=== PATIENT | female | born 1985 | race African-American/Black ===

== ENCOUNTER 2020-04-06 15:50 | Outpatient (CLI) | payer BC, SELFPAY ==
[2020-04-06 16:57] LABS: Beta HCG Quantitative < 2.39 mIU/ML
== END 2020-04-06 15:51 | disposition home or self-care (01) ==
PROVIDERS: PCP Internal Medicine; Visit Provider Obstetrics & Gynecology
DX: O03.9 Complete or unspecified spontaneous abortion without complication (principal); Z3A.00 Weeks of gestation of pregnancy not specified
CPT/HCPCS: 36415; 84702

== ENCOUNTER 2020-12-14 15:35 | Outpatient (CLI) | payer BC, SELFPAY ==
--- NOTE | ~2020-12-14 | US_ITS ---
EXAMINATION: US OB <=14 wk fetus w TV EXAM DATE: 12/14/2020 16:03 INDICATION: Dating and viability. 1st trimester. TECHNIQUE: Pelvic obstetrical transabdominal sonogram was performed by a technologist. There are mu ltiple grayscale and Doppler images available for interpretation. There are no earlier studies of th is gestation for comparison. FINDINGS: Uterus measures 8.8 x 5.5 x 5.9 cm. There is intrauterine gestation sac. pole with heart rate confirmed at 138 beats per minute. The 10 mm crown-rump length corresponds to estimated g estational age by ultrasound of 7 weeks 1 day, estimated date of confinement 08/01/2021. Yolk sac is identified. There is no sonographic evidence of subchorionic hemorrhage. The ovaries are unremar kable. Uncertain which one has the corpus luteal cyst. IMPRESSION: Early live intrauterine gestation, age by ultrasound 7 weeks 1 day. Reviewed, dictated and finalized at location A. IMPRESSION: Early live intrauterine gestation, age by ultrasound 7 weeks 1 day .
[2020-12-18 08:52] LABS: Progesterone 24.5 ng/mL (***)
== END 2020-12-14 15:36 | disposition home or self-care (01) ==
LOC: ANHIMG 15:35
PROVIDERS: PCP Internal Medicine; Visit Provider Obstetrics & Gynecology
DX: Z34.90 Encounter for supervision of normal pregnancy, unspecified, unspecified trimester (principal); N91.2 Amenorrhea, unspecified; Z3A.00 Weeks of gestation of pregnancy not specified
CPT/HCPCS: 36415; 76801; 76817; 84144; 84702

== ENCOUNTER 2020-12-16 15:07 | Outpatient (CLI) | payer BC, SELFPAY | END 2020-12-16 15:08 | disposition home or self-care (01) | LOC: ANHLAB 15:08 | PROVIDERS: PCP Internal Medicine; Visit Provider Obstetrics & Gynecology | DX: N91.2 Amenorrhea, unspecified (principal) | CPT/HCPCS: 36415; 84702 ==

== ENCOUNTER 2021-05-17 13:59 | Outpatient (CLI) | payer BC, SELFPAY ==
[2021-05-17 14:39] LABS: Glucose 1 Hour PP 50gm Dose 93 mg/dL
[2021-05-17 14:45] LABS: Basophils Percent Auto 0.1 % (0.2-1.2); Eosinophils Percent Auto 0.1 % (0-4.4); Hematocrit 35.6 % (37.0-47.0); Hemoglobin 12.4 g/dL (12.0-15.0); Immature Granulocyte Absolute 0.02 K/mm3 (0.00-0.031); Immature Granulocyte Percent A 0.3 % (0-0.5); Lymphocytes Absolute Auto 1.47 K/mm3 (0.9-3.2); Lymphocytes Percent Auto 18.9 % (18.3-44.2); Mean Corpuscular HGB Conc 34.8 g/dl (32-36); Mean Corpuscular Hemoglobin 30.8 pg (26-34); Mean Corpuscular Volume 88.3 fl (80-100); Mean Platelet Volume 10.2 fl (7.4-10.4); Monocytes Absolute Auto 0.9 K/mm3 (0.1-0.6); Monocytes Percent Auto 11.4 % (2.6-8.5); Neutrophils Absolute Auto 5.4 K/mm3 (1.3-6.7); Neutrophils Percent Auto 69.2 % (45.5-73.1); Platelet Count Result 252 k/mm3 (150-375); Red Blood Count 4.03 M/mm3 (4.2-5.4); Red Cell Distribution Width 13.2 % (11.5-14.5); White Blood Count 7.8 K/mm3 (4.5-10.0)
== END 2021-05-17 14:00 | disposition home or self-care (01) ==
PROVIDERS: PCP Internal Medicine; Visit Provider Obstetrics & Gynecology
DX: Z34.90 Encounter for supervision of normal pregnancy, unspecified, unspecified trimester (principal); Z3A.00 Weeks of gestation of pregnancy not specified
CPT/HCPCS: 36415; 82947; 85025; 86850

== ENCOUNTER 2021-06-03 15:19 | Outpatient (CLI) | payer BC, SELFPAY ==
[2021-06-03 16:18] LABS: Basophils Percent Auto 0.1 % (0.2-1.2); Eosinophils Percent Auto 0.1 % (0-4.4); Hemoglobin 13.2 g/dL (12.0-15.0); Immature Granulocyte Absolute 0.02 K/mm3 (0.00-0.031); Immature Granulocyte Percent A 0.3 % (0-0.5); Lymphocytes Absolute Auto 1.32 K/mm3 (0.9-3.2); Lymphocytes Percent Auto 17.1 % (18.3-44.2); Mean Corpuscular HGB Conc 33.8 g/dl (32-36); Mean Corpuscular Volume 88.6 fl (80-100); Mean Platelet Volume 10.6 fl (7.4-10.4); Monocytes Absolute Auto 0.8 K/mm3 (0.1-0.6); Neutrophils Absolute Auto 5.6 K/mm3 (1.3-6.7); Neutrophils Percent Auto 72.4 % (45.5-73.1); Platelet Count Result 248 k/mm3 (150-375); Red Cell Distribution Width 13.2 % (11.5-14.5); White Blood Count 7.7 K/mm3 (4.5-10.0)
[2021-06-03 17:10] LABS: HIV 1/2 Ab P24 Ag Result Negative (Negative)
[2021-06-04 11:52] LABS: Rapid Plasma Reagin Reactive (NonReactive)
[2021-06-07 17:47] LABS: Treponema pallidum Ab FTA ABS Nonreactive (Nonreactive)
== END 2021-06-03 15:20 | disposition home or self-care (01) ==
LOC: ANHLAB 15:22
PROVIDERS: PCP Internal Medicine; Visit Provider Obstetrics & Gynecology
DX: Z34.90 Encounter for supervision of normal pregnancy, unspecified, unspecified trimester (principal); Z3A.00 Weeks of gestation of pregnancy not specified
CPT/HCPCS: 36415; 85025; 86592; 86703; 86780; G0432

== ENCOUNTER 2021-07-24 09:25 | Outpatient (RCR) | payer BC, SELFPAY ==
[2021-07-22 15:48] VITALS: BP 109/65; PULSE 71
--- NOTE | 2021-07-22 16:25 | PC.NURSE ---
FATMATA=6.7
--- NOTE | ~2021-07-24 | US_ITS ---
EXAMINATION: US OB limited EXAM DATE: 07/22/2021 16:15 INDICATION: Decreased baseline. FATMATA. Oligohydramnios. 3rd trimester. TECHNIQUE: Pelvic obstetrical transabdominal sonogram was performed by a technologist. There are mu ltiple grayscale and Doppler images available for interpretation. Comparison is made to prior examina tion from 12/14/2020. FINDINGS: There is a single fetus identified in vertex presentation with a heart rate of 139 beats pe r minute. The placenta is located in the anterior position. There is no sonographic evidence of retr oplacental hemorrhage identified. AMNIOTIC FLUID INDEX Quadrant 1: 0 cm Quadrant 2: 0 cm Quadrant 3: 2.8 cm Quadrant 4: 3.9 cm Amniotic fluid index: 6.7 cm. (The 5th -- 95th percentile range is 7.3-23.9). IMPRESSION: 1. Single fetus in vertex presentation with heart rate 139 beats per minute. 2. FATMATA 6.7 cm, OLIGOHYDRAMNIOS. Reviewed, dictated and finalized at location A. SIVE PHYSICIAN
[2021-07-24 10:54] VITALS: BP 108/67; PULSE 73
== END 2021-08-19 13:22 | disposition home or self-care (01) ==
LOC: ANHOBOP 09:25
PROVIDERS: PCP Internal Medicine; Visit Provider Obstetrics & Gynecology
DX: O36.8330 Maternal care for abnormalities of the fetal heart rate or rhythm, third trimester, not applicable or unspecified (principal); O41.03X0 Oligohydramnios, third trimester, not applicable or unspecified; Z3A.38 38 weeks gestation of pregnancy
CPT/HCPCS: 59025; 76815

== ENCOUNTER 2021-07-24 10:40 | Inpatient (IN) | payer BC, SELFPAY ==
[2021-07-24] VITALS (68 sets, daily range): BP systolic 95–140; BP diastolic 51–92; PULSE 40–91; RESP 13–16; TEMP 35.9–36.9; O2SAT 89–100; BMI 31.4
[2021-07-24] MEDS: DINOPROSTONE 10 MG VAG INSERT VAGINAL (12:34)
[2021-07-24 12:43] LABS: Basophils Percent Auto 0.1 % (0.2-1.2); Eosinophils Percent Auto 0.3 % (0-4.4); Hematocrit 41.6 % (37.0-47.0); Hemoglobin 14.1 g/dL (12.0-15.0); Immature Granulocyte Absolute 0.02 K/mm3 (0.00-0.031); Immature Granulocyte Percent A 0.3 % (0-0.5); Lymphocytes Absolute Auto 1.32 K/mm3 (0.9-3.2); Lymphocytes Percent Auto 18.8 % (18.3-44.2); Mean Corpuscular HGB Conc 33.9 g/dl (32-36); Mean Corpuscular Hemoglobin 30.9 pg (26-34); Mean Platelet Volume 10.7 fl (7.4-10.4); Monocytes Absolute Auto 0.6 K/mm3 (0.1-0.6); Neutrophils Percent Auto 71.5 % (45.5-73.1); Platelet Count Result 237 k/mm3 (150-375); Red Blood Count 4.57 M/mm3 (4.2-5.4); Red Cell Distribution Width 13.7 % (11.5-14.5)
--- NOTE | 2021-07-24 12:43 | LDADM ---
This patient, Buzz Connolly, was admitted to Labor/Delivery/Recovery 109 on 07/24/21 at 10:40. Plans for labor, pain management and were discussed with patient. Patient/family oriented to hospital policies and general routines including ID bracelet, bed and alarms, visiting hours, pain management, procedures, bathroom and other care routines, personal items, smoking policy, room service/diet and guest tray routines, security routines, and visiting hours. Patient/Family are encouraged to report perceived risks to care and to ask questions if they do not understand what they are told or what they should do. See OBIX for further documentation.
[2021-07-24] MEDS: LACTATED RINGERS 1,000 ML 125 ML IV CONT (13:50)
[2021-07-24] MEDS: AMPICILLIN 2 GM/NS 100 ML 2 GM/100 ML BAG IVPB (13:50)
--- NOTE | 2021-07-24 16:29 | WPDANLDPN2 ---
Anes-Prog Note L&D Date/Time: 07/24/21 16:29 Comfortable throughout: labor and delivery Neuraxial method: epidural Epidural/Spinal procedure site: clean & non-tender Neuro status: Neuro function grossly intact. Cardiovascular status: normal Respiratory status: normal Airway patency: baseline Mental status: baseline Post-Op hydration status: normal Vital Signs: Last Vital Signs Pulse 71 07/24/21 15:01 BP 109/61 07/24/21 15:01 Pain score (VAS): 0 Post-procedural complaints: none Patient feedback: Patient satisfied with anesthetic care.
[2021-07-24] MEDS: ceFAZolin 2 GM/D5W 50 ML 2 GM/50 ML BAG IVPB (17:25)
--- NOTE | 2021-07-24 17:49 | PC.NURSE ---
1455- called in to see what SVE was,informed has not been performed due to repetitive late decelerations per Mele SANDOVAL. will review fhr strip at home and call back.
--- NOTE | 2021-07-24 17:51 | PC.NURSE ---
1636- called back, section called for [facility]'s. Anesthesia and nursery notified.
--- NOTE | 2021-07-24 18:06 | PM.IMHP ---
H&P: HPI History of Present Illness Date/Time: 07/24/21 18:06 Patient admitted for medical induction of labor due to non reassuring surveillance testing. She was scheduled for NST FATMATA today after having an FATMATA 6.7 on Jul. She was evaluated then for decrease baseline. The NST was reactive. On L and D she had non repetitive mild deceleration and she was recommended for induction due to nonreassuring surveillance at term. Her cervix was closed. She was informed of induction and risk benefits and risk of continuing . She agreed with induction. Discussed cervidil and pitocin. PNC significant for pos GBS, and AMA. She does have satisfied parity and has desire for permanent sterilization . She is aware it may need to be done after recovery. Chief Complaint: Nonreassuring tracing. Review of Systems Review of Systems: All systems reviewed & are unremarkable except as noted in HPI and below Constitutional: Constitutional: Reports no additional constitutional complaints and Denies headache(s) Eyes: Eyes: Denies spots in vision ENT: Reports system reviewed and no additional complaints, except as documented and Denies headache(s) Cardiovascular: Cardiovascular: Denies chest pain and Denies dyspnea Respiratory: Respiratory: Denies dyspnea Gastrointestinal: Gastrointestinal: Reports no additional gastrointestinal complaints Genitourinary: Genitourinary: Reports amenorrhea Musculoskeletal: Musculoskeletal: Reports no additional musculoskeletal complaints Integumentary/Breasts: Skin/Breast: Denies breast mass and Denies rash Neurologic: Denies headache(s) Psychiatric: Psychiatric: Reports no additional psychiatric complaints PMFSH Past Medical History Medical History x1 Anxiety History of syphilis Missed x1 Vaginal delivery x1 Surgical History Surgical History H/O LEEP [place] teeth extracted Family History Family History Other No pertinent family history Social History Social History Smoking status: Never smoker Alcohol intake: never Substance use: never Spiritual care concerns: No Meds Home Medications and Allergies Home Medications Medication Instructions Recorded Confirmed Type prenat.vits,nubia,dls-uqsi-mhize 1 tablet PO DAILY 01/13/21 07/22/21 History Allergies Allergy/AdvReac Type Severity Reaction Status Date / Time No Known Allergies Allergy Mild Verified 07/13/21 09:29 Vital Signs Vital Signs - 24 hr 07/24/21 11:15 07/24/21 11:31 07/24/21 11:45 Pulse Rate 72 80 91 Blood Pressure 139/92 H 119/68 118/75 07/24/21 12:00 07/24/21 12:15 07/24/21 14:29 Pulse Rate 80 77 71 Blood Pressure 114/68 115/78 116/72 07/24/21 15:01 07/24/21 16:34 Pulse Rate 71 65 Blood Pressure 109/61 140/74 Exam Const: General: no acute distress Eyes: General: appearance normal, both eyes and all related structures Resp: Effort & Inspection: normal respiratory effort Cardio: Rate: regular rate GI: Other: Gravid no fundal tenderness no right upper quadrant pain Skin: General skin exam: no rashes or lesions noted Neuro: Cognition (Neuro): normal cognition Extrem: General: normal to inspection Psych: Mental Status: mental status grossly normal H&P: Results Labs Labs: Short CBC 07/24/21 Range/Units 12:38 WBC 7.0 (4.5-10.0) K/mm3 Hgb 14.1 (12.0-15.0) g/dL Hct 41.6 (37.0-47.0) % Plt Count 237 (150-375) k/mm3 Assessment and Plan Assessment and plan (1) Non-reassuring cardiotocographic tracing: Code(s): O36.8390 - Maternal care for abnormalities of the heart rate or rhythm, unspecified trimester, not applicable or unspecified Status: A
--- NOTE | 2021-07-24 18:19 | P.PNOB_ITS ---
OB - PN: Subj Subjective Date/time seen: 07/24/21 18:19 I was called at 1556 due to patient having nonrepetitive late decelerations. Cervidil removed. The plan was for observation and once resolved will give trial of pitocin. I called at 1630 and informed pitocin not started due to late decelerations persisted, and decreased variability. I informed to prepare patient for ceserean section. Her cervix was also checked and was closed. I talked to patient when I arrived and discussed the recommendation for demi erean section due to nonreassuring tracing remote from delivery, intolerance to labor. I discussed risk of ceserean section and risk of continuing induction process. She agreed to primary ceserean section. Sterilization not offered at this time. OB - PN: Obj Data Labs CBC & Chem 7: 07/24/21 12:38 Labs: Laboratory Results - last 24 hr 07/24/21 07/24/21 12:38 12:38 WBC 7.0 RBC 4.57 Hgb 14.1 Hct 41.6 MCV 91.0 MCH 30.9 MCHC 33.9 RDW 13.7 Plt Count 237 MPV 10.7 H Immature Gran % (Auto) 0.3 Neut % (Auto) 71.5 Lymph % (Auto) 18.8 [place] % (Auto) 9.0 H Eos % (Auto) 0.3 Baso % (Auto) 0.1 L Lymph # (Auto) 1.32 [place] # (Auto) 0.6 Eos # (Auto) 0.0 Baso # (Auto) 0.0 Abs Immat Gran (auto) 0.02 Absolute Neuts (auto) 5.0 Absolute Nucleated RBC 0.0 Nucleated RBC % 0.0 Blood Type AB Positive Antibody Screen Negative OB - PN A/P Time Spent With Patient Time: Total time spent is greater than 50% in coordination of care (as documented) at patient's floor/unit and/or counseling patient:
--- NOTE | 2021-07-24 18:34 | W.PM.PROC2 ---
Procedure Note - Detailed Date of Procedure 07/24/21 Pre-op Diagnosis 1 IOL 2. intolerance to labor, remote from delivery. Post-op Diagnosis same Procedure Performed Primary low transverse ceserean section. Surgeon Brandon Duron MD Anesthesia spinal Indications Nonreassuring tracing remote from delivery. Findings male , 5lb 6oz, 9,9 normal uterus fallopian tubes and ovaries bilaterally, there was a cord around the trunk and leg manually reduced, infant was vigorously crying upon delivery. Description of Procedure After informed consent, risks and benefits of the procedure was discussed with the patient. The patient was taken to the operating room where she was placed in the dorsal lithotomy position with leftward tilt. A spinal anesthesia was performed and found to be adequate, she was then prepped and draped in the usual sterile fashion. A Pfannenstiel skin incision was made with a scalpel and carried through to the underlying layer of fascia. The fascia was then nicked in the midline, extending bilaterally. The fascia was dissected off the rectus muscles bluntly and sharply, superiorly and inferiorly. The rectus muscles were in the midline, and peritoneum was identified and entered bluntly. The pelvic organs were visualized. The bladder blade was then inserted. The vesicouterine peritoneum was identified and entered sharply with Metzenbaum scissors and extended bilaterally and then the bladder flap was created digitally. The low transverse uterine incision was then made with the scalpel and extended with bilateral index fingers in a crescent-shaped fashion. Clear amniotic fluid was noted. The head was delivered and the rest of the infant was delivered. The cord was wrapped around the abdomen once and the leg. The cord was manually reduced. The nose and mouth suctioned. The cord was clamped twice and cut. The was then handed off to the awaiting pediatric staff. Cord segment and cord blood obtained. The placenta was then delivered manually. The uterine cavity was sponge curretted. The uterus was then exteriorized. The uterine incision was then closed with 0 vicryl in a running locked fashion. A second layer of 0 vicryl was used in an imbricating fashion for hemostasis. Hemostasis noted. The uterus was then returned to the abdomen. Posterior cul de sac and bilateral gutters were cleared off all clots and debris. The uterine incision was noted to be hemostatic. Interceed placed on uterine incision and vertically on front of uterus. The muscle bellies were inspected and noted to be hemostatic. The subfascial layer was noted to be hemostatic, and the fascia was closed with 0 Vicryl in a running fashion. The subcutaneous layer was irrigated. Hemostasis obtained with cautery. The skin was closed in a subcutaneous fashion with 4.0 vicryl on a kief needle. Skin dermabond applied at incision. Dressing placed. All instruments, needle, and lap counts were correct x3. The patient was taken to the recovery room in stable condition. Estimated Blood Loss -275.0 Drains No Packing No Pathology yes Complications No immediate complications Condition stable Disposition floor
[2021-07-24] MEDS: OXYTOCIN 30 UNITS/NS 500 ML 30 UNITS/500 ML BAG 125 UNITS IV CONT (19:15)
[2021-07-24] MEDS: ONDANSETRON INJ 4 MG/2 ML VIAL IV PUSH (19:44)
[2021-07-24] MEDS: KETOROLAC 30 MG/ML VIAL (*BKC) IV PUSH (19:51)
--- NOTE | 2021-07-24 20:29 | OBPPTRN ---
Patient transferred to post room #284 via stretcher. Support person present. Oriented to unit, room, information board, rooming in, admission packet and security measures. Patient verbalizes understanding.
[2021-07-24] MEDS: DEXTROSE 5%/0.45% SOD CHL 1,000 ML 125 ML IV CONT (23:51)
[2021-07-25] MEDS: KETOROLAC 30 MG/ML VIAL (*BKC) IV PUSH (04:28)
[2021-07-25 04:45] VITALS: BP 117/71; PULSE 63; RESP 16; TEMP 36.9; O2SAT 100
[2021-07-25 05:11] LABS: Hematocrit 34.9 % (37.0-47.0); Hemoglobin 12.1 g/dL (12.0-15.0); Mean Corpuscular HGB Conc 34.7 g/dl (32-36); Mean Corpuscular Hemoglobin 31.3 pg (26-34); Mean Corpuscular Volume 90.4 fl (80-100); Mean Platelet Volume 10.9 fl (7.4-10.4); Platelet Count Result 201 k/mm3 (150-375); Red Blood Count 3.86 M/mm3 (4.2-5.4); Red Cell Distribution Width 13.5 % (11.5-14.5); White Blood Count 12.4 K/mm3 (4.5-10.0)
--- NOTE | 2021-07-25 07:29 | WPDANLDPN2 ---
Anes-Prog Note L&D Date/Time: 07/25/21 07:29 Comfortable throughout: section Neuraxial method: spinal Epidural/Spinal procedure site: clean & non-tender Neuro status: Neuro function grossly intact. Cardiovascular status: normal Respiratory status: normal Airway patency: baseline Mental status: baseline Post-Op hydration status: normal Vital Signs: Last Vital Signs Temp 36.9 C 07/25/21 04:45 Pulse 63 07/25/21 04:45 Resp 16 07/25/21 04:45 BP 117/71 07/25/21 04:45 Pulse Ox 100 07/25/21 04:45 Pain score (VAS): 4 I/O: Intake & Output 07/24/21 07/24/21 07/25/21 15:59 23:59 07:59 Intake Total 500 Output Total 115 500 Balance 385 -500 Post-procedural complaints: none Patient feedback: Patient satisfied with anesthetic care.
--- NOTE | 2021-07-25 07:29 | WPDANLDNPN2 ---
Anes-Prog Note L&D-Neuraxial Date/Time: 07/25/21 07:29 Neuraxial medications: intrathecal PF morphine Opiod-related complaints: none Patient feedback: Patient satisfied with post-operative pain management.
[2021-07-25 07:58] VITALS: BP 101/68; PULSE 68; RESP 12; TEMP 35.9; O2SAT 100
[2021-07-25] MEDS: DOCUSATE SODIUM 100 MG CAPSULE PO (07:58)
[2021-07-25] MEDS: MULTIVIT/MIN/PREN/FOL AC/IRON TABLET 1 TAB PO (07:58)
--- NOTE | 2021-07-25 08:42 | PM.OBPNVD ---
OB - PN: Subj Subjective Date/time seen: 07/25/21 08:42 She reports adequate pain control. Tolerating liquid diet. No emesis or nausea. Has not sat up in chair or ambulated. Breast and bottle feeding well. No leg pain. Mild lochia. OB - PN: Obj Data Labs CBC & Chem 7: 07/25/21 04:36 Labs: Laboratory Results - last 24 hr 07/24/21 07/24/21 07/25/21 12:38 12:38 04:36 WBC 7.0 12.4 H RBC 4.57 3.86 L Hgb 14.1 12.1 Hct 41.6 34.9 L MCV 91.0 90.4 MCH 30.9 31.3 MCHC 33.9 34.7 RDW 13.7 13.5 Plt Count 237 201 MPV 10.7 H 10.9 H Immature Gran % (Auto) 0.3 Neut % (Auto) 71.5 Lymph % (Auto) 18.8 [place] % (Auto) 9.0 H Eos % (Auto) 0.3 Baso % (Auto) 0.1 L Lymph # (Auto) 1.32 [place] # (Auto) 0.6 Eos # (Auto) 0.0 Baso # (Auto) 0.0 Abs Immat Gran (auto) 0.02 Absolute Neuts (auto) 5.0 Absolute Nucleated RBC 0.0 Nucleated RBC % 0.0 Blood Type AB Positive Antibody Screen Negative OB - PN A/P Assessment and Plan (1) Status post delivery: Code(s): Z98.891 - History of uterine scar from previous surgery Status: Acute Assessment and Plan: She is doing well. Routine post op care. Time Spent With Patient Time: Total time spent is greater than 50% in coordination of care (as documented) at patient's floor/unit and/or counseling patient: Exam Const: General: comfortable and no acute distress Resp: Effort & Inspection: normal respiratory effort Auscultation: clear to auscultation bilaterally Cardio: Rate: regular rate GI: Other: dressing clean dry intact +BS, appropriate fundal tenderness Extrem: General: normal to inspection Other: nontender neg [place] Psych: Mental Status: mental status grossly normal Affect: normal affect
[2021-07-25 11:25] VITALS: BP 104/62; PULSE 62; RESP 12; TEMP 36.5; O2SAT 100
[2021-07-25] MEDS: HYDROcodone/acetaminophen (*CRX) 5-325 MG TABLET 1 TAB PO ×3 (11:40→22:12)
[2021-07-25 15:10] VITALS: BP 100/54; PULSE 66; RESP 12; TEMP 36.4; O2SAT 100
[2021-07-25] MEDS: IBUPROFEN 600 MG TABLET PO (16:58)
[2021-07-25 19:00] VITALS: BP 108/58; PULSE 73; RESP 16; TEMP 36.5
[2021-07-26 07:45] VITALS: BP 107/60; PULSE 89; RESP 16; TEMP 37; O2SAT 100
[2021-07-26] MEDS: IBUPROFEN 600 MG TABLET PO ×2 (08:12→15:47)
[2021-07-26] MEDS: MULTIVIT/MIN/PREN/FOL AC/IRON TABLET 1 TAB PO (08:12)
[2021-07-26] MEDS: DOCUSATE SODIUM 100 MG CAPSULE PO ×2 (08:12→15:47)
[2021-07-26] MEDS: HYDROcodone/acetaminophen (*CRX) 5-325 MG TABLET 1 TAB PO ×2 (08:13→15:47)
--- NOTE | 2021-07-26 09:50 | PM.OBPNVD ---
OB - PN: Subj Subjective Date/time seen: 07/26/21 09:50 She has ambulated a small amount. Pain controlled with medication. Positive flatus. No emesis. OB - PN: Obj Data Labs CBC & Chem 7: 07/25/21 04:36 OB - PN A/P Assessment and Plan (1) Status post delivery: Code(s): Z98.891 - History of uterine scar from previous surgery Status: Acute Assessment and Plan: POD2 s/p primary ceserean section. Encourage ambulation. Recommend using abdominal binder. Routine post op care. Time Spent With Patient Time: Total time spent is greater than 50% in coordination of care (as documented) at patient's floor/unit and/or counseling patient: Exam Const: General: comfortable and no acute distress Resp: Effort & Inspection: normal respiratory effort GI: Other: incision clean dry intact, fundus -1umb firm, appropriate fundal tenderness Extrem: General: normal to inspection Other: nontender Psych: Mental Status: mental status grossly normal Affect: normal affect
--- NOTE | 2021-07-26 10:30 | PC.NURSE ---
Consult with pt., mother reports is eagerly feeding with slight tenderness. Mother states she is both breast and bottle feeding and does not know if she will continue to breastfeed due to work and school schedule. Mother states she will not be able to pump while in school or work. Reviewed switching to bottle feeding a week before returning to school and work. Reviewed feeding cues, frequencies, duration of feedings, feeding elimination flow sheet, and signs of adequate intake. Demonstrated stimulation techniques to wake infant for feeding. Reviewed signs of a correct latch, effective nursing and suck swallow ratio. Nipple care reviewed of lanolin after feedings and warm compresses as needed. Requested mother to call out for RN/LC assistance next feeding to assess latch. Instructed feeding should be initiated three hours from start of last feeding or if feeding cues are noted before. Mother voiced understanding of information shared.
[2021-07-26] MEDS: TETANUS,DIPHTHERIA,AC PERTUSSIS ADULT (0.5 ML) BOOSTRIX IM (13:00)
[2021-07-26 13:26] LABS: Rapid Plasma Reagin Reactive (NonReactive)
--- NOTE | 2021-07-26 14:30 | PC.NURSE ---
Mother called out for assist with feeding. Infant is able to freely thrust tongue past gum ridge and flange both lips. Skin is intact on both nipples, no redness and bruising noted. Reviewed feeding cues, frequencies, duration of feedings, feeding elimination flow sheet, and signs of adequate intake. Demonstrated stimulation techniques to wake for feeding. Assisted with infant to breast. Reviewed positioning/alignment in cross cradle, holding breast in ?U? hold and guided asymmetrical latch on. Reviewed rational for each. able to latch correctly within a few attempts. Infant nursed eagerly with steady draws and frequent swallowing noted, some pausing noted. Reviewed signs of a correct latch, effective nursing and suck swallow ratio. Suggested mother stimulate while feeding to increase stimulation for milk supply, for increased intake and to assist with maintaining deep latch. Infant would slip to shallow latch causing tenderness. Demonstrated how to adjust latch more deeply while feeding as needed. Mother reports she can feel the difference in latch with no tenderness. Nipple care reviewed of lanolin after feedings, warm compresses as needed. Instructed mother to call out for RN assistance if she is unable to latch infant for feeding or she has discomfort with nursing. Instructed feeding should be initiated three hours from start of last feeding or if feeding cues are noted before. Mother voiced understanding of information shared.
--- NOTE | 2021-07-26 18:40 | OBPPTRN ---
Patient transferred to post room #292 via wheelchair. Support person present. Oriented to unit, room, information board, rooming in, admission packet and security measures. Patient verbalizes understanding.
[2021-07-26 19:30] VITALS: BP 107/58; PULSE 73; RESP 16; TEMP 37
[2021-07-27] MEDS: IBUPROFEN 600 MG TABLET PO ×2 (02:51→09:11)
[2021-07-27] MEDS: HYDROcodone/acetaminophen (*CRX) 5-325 MG TABLET 1 TAB PO ×2 (02:51→09:10)
[2021-07-27 08:20] VITALS: BP 109/69; PULSE 87; RESP 16; TEMP 36.6; O2SAT 100
--- NOTE | 2021-07-27 08:54 | PM.OBPNVD ---
OB - PN: Subj Subjective Date/time seen: 07/27/21 08:54 Patient doing well. Pain well controlled with medication. Denies any headache, chest pain, SOB, N/V. Tolerating PO diet. Voiding well. Passing flatus. Minimal lochia. OB - PN: Obj Data Labs CBC & Chem 7: 07/25/21 04:36 Labs: Laboratory Results - last 24 hr 07/24/21 12:38 RPR Reactive A OB - PN A/P Assessment and Plan (1) Delivery by section using transverse incision of lower segment of uterus: Code(s): O82 - Encounter for delivery without indication Status: Acute Assessment and Plan: POD#3 doing well discharge home in stable condition emergency precautions reviewed f/u in office in 2 weeks Time Spent With Patient Time: Total time spent is greater than 50% in coordination of care (as documented) at patient's floor/unit and/or counseling patient: Exam Const: General: cooperative, healthy appearing, comfortable and no acute distress GI: Inspection: non-distended GI Palp: Yes Soft to palpation and No Tenderness to palpation present (GI) Other: fundus firm below umbilicus inc c/d/i Extrem: Right lower extremity: no edema Left lower extremity: no edema Other: no calf tenderness
--- NOTE | 2021-07-27 09:01 | P.DS_ITS ---
DS: Admitting Diagnosis Discharge Date 07/27/21 Admitting Diagnosis IUP at term OB - DS: Summary OB Procedures : None OB Procedures Intrapartum: OB Procedures: : None Peripartum Data Procedures: Procedures Operation Date: 07/24/21 17:00 Actual Procedure Side Surgeon p Section Brandon Duron MD Time Spent with Patient Time attestation: Total time spent providing and/or coordinating discharge services: DS: Data Data Completed and Pending Pending studies at discharge: Pending at discharge 07/24/21 17:41 Surgical [PTH] Routine Labs on day of discharge: Labs from last 24 hours 07/24/21 07/24/21 12:38 12:38 RPR Reactive A T.pallidum Ab (FTA-ABS) Pending Discharge Plan Discharge Attending physician on discharge: Hilda Naidu Discharging Clinician: Hilda Naidu Anticipated Discharge Date/Time: 07/27/21 09:02 Patient Disposition: Home, Self-Care Activity: as tolerated and pelvic rest Diet: regular Discharge Instructions: Call office ([phone]) to schedule the following appointments: 1. Postoperative/wound check in 2 weeks. 2. visit in 4-6 weeks. You may take Ibuprofen 600mg every 6 hours as needed for pain. I have sent a prescription for a stronger pain medication, [place], to your pharmacy. You may take this as prescribed for breakthrough pain (pain that is not controlled with Ibuprofen). No driving for at least two weeks. You also may not drive while taking narcotics. Pain medication may make you constipated. It may be helpful to take an hrbi-wky-lmsibbe stool softener, such as Colace and/or Senokot, along with the pain medication to help lessen constipation. Call office or go to ED for pain not controlled with medication, headache, chest pain, shortness of breath, fever, chills, persistent nausea or vomiting, severe abdominal pain, heavy vaginal bleeding >2 pads/hour, foul vaginal discharge or odor, any redness near incision, severe pain, pus or drainage from incision site, or problems with your breasts. Patient Instructions: Antibiotic Form Stand Alone Forms: General Discharge Information Follow-up/Referrals: Brandon Duron MD [Physician] - Hilda Naidu MD [Physician] - Discharge Medications: New hydrocodone-acetaminophen 5-325 mg Tablet 1 - 2 tablet PO Q4-6H Qty: 30 RF: 0 Continued prenat.vits,nubia,ggp-iyos-mrffs Tablet 1 tablet PO DAILY RF: 0 Date of admission: 07/24/21 10:40 Primary Care Provider: Susanna,Koffi Riddle Admitting Provider: Brandon Duron Attending physician on admission: Brandon Duron Condition: Stable
[2021-07-27] MEDS: DOCUSATE SODIUM 100 MG CAPSULE PO (09:10)
[2021-07-27] MEDS: MULTIVIT/MIN/PREN/FOL AC/IRON TABLET 1 TAB PO (09:10)
--- NOTE | 2021-07-27 10:33 | PC.NURSE ---
Patient viewed the discharge video Mother & Baby Care, The First Two Weeks . Patient was given the opportunity and encouraged to ask questions. Patient verbalized understanding of information shared and has been given the mother/baby guide for home reference.
[2021-07-28 08:42] VITALS: BP 128/88; PULSE 93; RESP 16; TEMP 37.2; O2SAT 99
[2021-07-28 15:45] LABS: Treponema pallidum Ab FTA ABS Nonreactive (Nonreactive)
== END 2021-07-27 13:13 | disposition home or self-care (01) | DRG 788 ==
LOC: ANHOB2 07-27 09:06 → ANHLDR 07-28 10:22 → ANHOB2 07-28 10:22
PROVIDERS: Admitting Provider Obstetrics & Gynecology; PCP Internal Medicine; Visit Provider Student in an Organized Health Care Education/Training Program
PROC: 10D00Z1 Extraction of Products of Conception, Low, Open Approach (ICD-10-PCS; CPT 59514; principal; 2021-07-24 17:00)
DX: O76 Abnormality in fetal heart rate and rhythm complicating labor and delivery (principal); O69.2XX0 Labor and delivery complicated by other cord entanglement, with compression, not applicable or unspecified; Z3A.38 38 weeks gestation of pregnancy; Z37.0 Single live birth; O99.824 Streptococcus B carrier state complicating childbirth
CPT/HCPCS: 36415; 85025; 85027; 86592; 86780; 86850; 86900; 86901; 88307; 90715; A9270; J0131; J0290; J0690; J1885; J2274; J2370; J2405; J2590; J3010; J7120

== ENCOUNTER 2025-06-14 13:09 | Emergency (ER) | payer BC, SELFPAY ==
--- NOTE | ~2025-06-14 | XR_ITS ---
Examination: XR chest 2V Clinical History: cough/chest congestion few weeks nonsmoker hx bronchitis Comparison: None Technique: PA and Lateral Findings: Cardiomediastinal silhouette normal size and configuration. Lungs clear. No acute bony abnormality. IMPRESSION: 1. No acute cardiopulmonary findings. Reviewed, dictated and finalized at location R.
[2025-06-14 13:19] VITALS: BP 113/87; PULSE 79; RESP 16; TEMP 36.4; O2SAT 98
--- NOTE | 2025-06-14 13:42 | ED_ITS ---
HPI - URI/Sore Throat General Chief Complaint: Upper Respiratory Infection Stated Complaint: Cough Time Seen by Provider: 06/14/25 13:30 Source: patient, RN notes reviewed and old records reviewed Mode of arrival: ambulatory Limitations: no limitations History of Present Illness HPI Narrative: 39 year old female who presents to express care with complaints 2 weeks of dry tickle in throat and then one week where cough feels more productive but has not been able to get stuff up, feels like it is more in her chest now.. Patient reports that she has not had any know fevers, has had PND, denies any sore throat or any abdominal pain, nausea vomiting or diarrhea. Patiient has been taking Mucinex for her symptoms. MD elicited complaint: cough Pertinent past history: other (bronchitis) Onset (ago): week(s) (3 increase symptoms past 2-3 days) Severity: moderate Able to tolerate fluids by mouth: Yes Treatments prior to arrival: other (mucinex) Related Data Allergies Allergy/AdvReac Type Severity Reaction Status Date / Time No Known Allergies Allergy Mild Verified 06/14/25 13:26 Review of Systems Review of Systems: CONSTITUTIONAL: Denies malaise, chills, sweats, or fever. EYES: Denies visual changes, redness, or discharge. ENT: Reports rhinorrhea, congestion, sinus pain,no otalgia and no sore throat. CARDIOVASCULAR: Denies chest pain, palpitations, or edema. RESPIRATORY: Reports frequent cough which feels loose at times but will not come up.? Denies dyspnea. GASTROINTESTINAL: Denies abdominal pain, nausea, vomiting, diarrhea SKIN: Denies rash or itching. MUSCULOSKELETAL: Denies myalgia. NEUROLOGIC: Denies headache. All systems reviewed & are unremarkable except as noted in HPI and below PMFSH Past Medical History Medical History (Updated 06/16/25 @ 14:09 by Sarah Martinez APRN) Bronchitis History of syphilis Vaginal delivery x1 Missed x1 x1 Anxiety Surgical History Surgical History (Updated 06/16/25 @ 14:10 by Sarah Martinez APRN) Previous section [place] teeth extracted H/O LEEP Family History Family History Other No pertinent family history Social History Social History (Reviewed 06/14/25 @ 13:55 by MANOHAR Mosley Smoking status: Never smoker Alcohol intake: never Substance use: never Spiritual care concerns: No Comments At time of signature, agree with nursing past medical, surgical, social and family history. There is no relevant family history pertinent to the presenting complaint Exam Narrative: GENERAL: Well-appearing, well-nourished, and in no acute distress. HEAD: Normocephalic EYES: PERRLA, conjunctivae clear ENT: Nares clear, turbinates edematous and erythematous, clear discharge, sinus pressure. Mucous membranes moist. TM pearly ramos with dull light reflex bilaterally; no tragal tenderness. Oropharynx erythematous without lesions. Tonsils not enlarged and without exudate, no drooling, no hoarseness, no trismus, uvula midline.post nasal drainage NECK: Supple. No lymphadenopathy CHEST: Coarse breath sounds on auscultation, breath sounds equal. No wheezing, rhonchi, rales, or stridor. No respiratory distress, speaks in full sentences.cough noted SAO2 98% on room air HEART: Regular rate and rhythm. No murmur heard. SKIN: Warm, dry, no rash. NEURO: Alert and oriented x3. PSYCH: Normal mood and affect Course Course Emergency Course: Patient is aware of diagnosis, understands and agrees to treatment plan.? Anticipatory guidance given.? Patient agrees to follow-up as directed and is aware of reasons to seek care at the emergency department. Portions of this record may have been created with voice recognition software Level of Care: Express Care Visit Vital Signs Vital signs: Vital Signs Temperature 36.4 C L 06/14/25 13:19 Pulse Rate 79 06/14/25 13:19 Respiratory Rate 16 06/14/25 13:19 Blood Pressure 113/87 06/14/25 13:19 Pulse Oximetry 98 06/14/25 13:19 Oxygen Delivery Room Air 06/14/25 13:19 Temperature 36.4 C L 06/14/25 13:19 Pulse Rate 79 06/14/25 13:19 Respiratory Rate 16 06/14/25 13:19 Blood Pressure 113/87 06/14/25 13:19 Pulse Oximetry 98 06/14/25 13:19 Oxygen Delivery Room Air 06/14/25 13:19 Reviewed MDM - URI/Sore Throat MDM Narrative Medical decision making narrative: Differential diagnosis considered: Bassett virus, strep pharyngitis, allergic rhinitis, upper respiratory tract infection, sinusitis, rhinosinusitis, nasopharyngitis. viral pharyngitis, otitis media, otitis externa, pneumonia, bronchitis, viral cough syndrome, viral syndrome, and influenza.? Exam findings show no acute concerns or changes; patient is non-toxic appearing and is in no distress.? Patient is appropriate for outpatient treatment and follow-up. Differential Diagnosis Differential diagnosis: Likely upper respiratory infection, sinusitis, viral in fection and other (cough in adult patient) Medical Records Attestation: I reviewed the patient's medical records. Lab Data Attestation: I reviewed the patient's lab results. Imaging Data Attestation: I personally reviewed and interpreted this imaging study as follows: My impression: no acute cardiopulmonary findings Radiologist's impression: [facility] [address] [place] [address] XRay Report Signed Patient: Buzz Connolly : 1985 MR#: [id number] Age: 39 Acct:[id number] Loc: [facility] ADM Date: 06/14/[address]: Ordering Physician: Sarah Martinez APRN Date of Service: 06/14/25 Procedure(s): XR chest 2V Accession Number(s): [id number] cc: Susanna, Koffi Riddle MD; Sarah Martinez APRN~ Examination: XR chest 2V Clinical History: cough/chest congestion few weeks nonsmoker hx bronchitis Comparison: None Technique: PA and Lateral Findings: Cardiomediastinal silhouette normal size and configuration. Lungs clear. No acute bony abnormality. IMPRESSION: 1. No acute cardiopulmonary findings. Reviewed, dictated and finalized at location R. Please be advised this is a medical document. It is intended for [id number] communication. It is written in medical language and may contain unfamiliar abbreviations or verbiage. Medical documents are intended to carry relevant information, facts as evident, and the clinical opinion of the practitioner at the time of the encounter. This report may have been done utilizing a voice recognition system. Attempts have been made to correct errors. However, there may be uncorrected grammatical, spelling, and recognition errors present. The file time of this note does not necessarily represent the time of service. Dictated By: Mariano Bailey MD 06/14/25 1356 Signed By: <Electronically signed by Mariano Bailey MD in OV> Critical Care Time Critical Care Time Critical Care Time: No Discharge Plan Discharge Clinical Impression: Cough in adult patient Sinusitis Qualifiers: Sinusitis location: pansinusitis Chronicity: acute Recurrence: non-recurrent Qualified Code(s): J01.40 - Acute pansinusitis, unspecified Patient Disposition: Home Condition: Stable Instructions: Antibiotic Form, Sinusitis (ED), Acute Cough (ED) Additional Instructions: Increase fluids especially juices and water [id number]-uvv-[id number] cough and cold medicine of your choice for your symptoms Zyrtec Claritin Leigh daily Steroids as directed--take with food heat to the face 20-30 minutes 4-6 times a day for pain Salt water gargles, throat lozenges or throat sprays as desired Antibiotic as directed--finished the medication If your symptoms persist, change or worsen significantly before you can contact your personal physician then please, without delay, go to the emergency department for further evaluation. Follow-up with PCP in 7-10 days or sooner if needed Tylenol or ibuprofen for fever/pain per package instructions Patient Language: Prydeinig Prescriptions: New amoxicillin-pot clavulanate 875-125 mg tablet 1 tablet PO Q12H Qty: 20 0RF Rx Instructions: take probiotic or eat Activia yogurt while taking antibiotic prednisone 20 mg tablet 20 mg PO BID 5 Days Qty: 10 0RF fluconazole 150 mg tablet 150 mg PO DAILY Qty: 2 0RF Rx Instructions: take one tab at onset of symptoms and may repeat as needed in 72 hours Follow-up/Referrals: Susanna,Koffi Riddle MD [Primary Care Provider, Unknown] Time of Disposition: 14:18 Quality Jere Coma Scale Eyes: Open Verbal: Oriented and Alert Motor: Follows Commands [place] Coma Total Score: 15
== END 2025-06-14 14:34 | disposition home or self-care (01) ==
PROVIDERS: Emergency Provider Registered Nurse; PCP Internal Medicine
DX: R05.9 Cough, unspecified (principal); J01.40 Acute pansinusitis, unspecified
CPT/HCPCS: 71046; 99213; G0463